=== PATIENT | female | born 1990 | race Caucasian/White ===

== ENCOUNTER 2018-12-10 15:54 | Inpatient (IN) ==
[2018-12-10 17:10] LABS: Bilirubin,Urine Negative (Negative); Blood,Urine Negative (Negative); Clarity,Urine Cloudy (Clear); Color,Urine Yellow (Yellow); Glucose,Urine (UA) Normal (Normal); Ketones,Urine Negative (Negative); Leukocyte Esterase,Urine Negative (Negative); Nitrite,Urine Negative (Negative); Protein,Urine Negative (Neg-Trace); Specific Gravity,Urine 1.013 (1.010-1.025); Urobilinogen,Urine Normal (Normal)
[2018-12-10 17:20] LABS: Bacteria,Urine None Seen per hpf (None-Few); Hyaline Casts,Urine None Seen per lpf (None-Few); RBC,Urine 0-3 per hpf (0-3); Squamous Epithelial Cell,Urine Many per lpf (None-Few); WBC,Urine 0-3 per hpf (0-3)
[2018-12-10] MEDS ORDERED: Isovue-370 500 ML BOTTLE IVP ONE (17:22)
[2018-12-10 17:23] LABS: Basophils % 0.6 %; Eosinophils # 0.4 K/mcL (0.0-0.6); Eosinophils % 6.1 %; Hematocrit 37.9 % (35.3-44.9); Hemoglobin 12.6 g/dL (11.5-15.4); Lymphocytes # 2.8 K/mcL (0.6-4.6); Lymphocytes % 44.1 %; Mean Corpuscular HGB Conc 33.2 g/dL (31.6-35.5); Mean Corpuscular Hemoglobin 27.8 pg (28.0-33.3); Mean Corpuscular Volume 83.7 fL (83.0-100.0); Mean Platelet Volume 10.7 fL (9.4-12.4); Monocytes # 0.9 K/mcL (0.0-1.3); Monocytes % 14.3 %; Neutrophils # 2.2 K/mcL (1.6-8.9); Platelet Count 338 K/mcL (140-400); Red Blood Count 4.53 M/mcL (3.82-4.97); Red Cell Distribution Width 18.6 % (11.5-14.5); Segmented Neutrophils % 34.9 %
[2018-12-10 17:28] LABS: Amphetamine Screen,Urine Negative ng/mL (Cutoff=1000); Barbiturate Screen,Urine Negative ng/mL (Cutoff=200); Benzodiazepines Screen,Urine Negative ng/mL (Cutoff=200); Cannabinoid Screen,Urine Negative ng/mL (Cutoff = 50); Cocaine Screen,Urine Negative ng/mL (Cutoff= 300); Opiate Screen,Urine Negative ng/mL (Cutoff=300); Phencyclidine Screen,Urine Negative ng/mL (Cutoff=25)
[2018-12-10 17:31] LABS: INR 1.4; Prothrombin Time 16.3 Seconds (9.4-12.1)
[2018-12-10 17:34] LABS: Activated Partial Thrombo Time 41.7 Seconds (26.0-36.0)
[2018-12-10 17:52] LABS: Acetaminophen < 10 mcg/mL (10-20); Alanine Aminotransferase > 500 Units/L (7-52); Albumin 3.7 g/dL (3.5-5.7); Alkaline Phosphatase 197 Units/L (34-104); Aspartate Amino Transferase 859 Units/L (13-39); BUN/Creatinine Ratio 7 (6-26); Bilirubin,Direct 4.7 mg/dL (0.0-0.2); Bilirubin,Indirect 2.9 mg/dL (0.0-1.2); Bilirubin,Total 7.6 mg/dL (0.3-1.0); Blood Urea Nitrogen 4 mg/dL (6-20); C-Reactive Protein < 5 mg/L (Less than 10); Calcium 9.3 mg/dL (8.6-10.3); Carbon Dioxide 27 mEq/L (23-29); Chloride 109 mEq/L (98-107); Globulin 3.6 g/dL (2.4-3.5); Glucose 91 mg/dL (70-105); Lipase 66 Units/L (11-82); Osmolality,Calculated 284 (280-300); Potassium 3.5 mEq/L (3.5-5.1); Salicylate < 2.5 mg/dL (15.0-30.0); Sodium 139 mEq/L (136-145); Total Protein 7.3 g/dL (6.4-8.9); eGFR For Non-African Americans > 60 (> 60)
[2018-12-10 18:30] LABS: Hepatitis B Surface Antigen Nonreactive (Nonreactive)
[2018-12-10 18:59] LABS: Hepatitis C Virus Antibody Nonreactive (Nonreactive)
[2018-12-10 19:00] LABS: Hepatitis B Core IgM Nonreactive (Nonreactive)
[2018-12-10 19:01] LABS: Hepatitis A Antibody IgM Nonreactive (Nonreactive)
--- NOTE | 2018-12-10 19:15 | Emergency Department Note ---
Disposition Clinical Impression: Abnormal liver function test, Jaundice, Hyperbilirubinemia, Hepatitis, Elevated INR, Hyperammonemia Disposition: Admitted As Inpatient Referrals: Carin Friedman CNP [Primary Care Provider] - Forms: ED Satisfaction Letter General Adult HPI - General Chief complaint: ED Headache Stated complaint: Jaundice,Dizziness,Nausea,chills Time Seen by Provider: 12/10/18 16:21 Source: patient Limitations: no limitations - History of Present Illness HPI Narrative: 28-year-old female reports emergency department describing increasing yellow eyes. The patient states she is status post cholecystectomy a few years ago. There is concern for jaundice. The patient reports she felt somewhat woozy weak and dizzy but did not pass out. There is no history of cough runny nose ear pain or sore throat no chest pain. The patient has no history of hepatitis, no recent acetaminophen ingestion. He patient denies any abdominal pain vomiting or diarrhea. She describes darkened urine. No flank pain. She has no history of hemochromatosis, prior liver disease, no history of hemolytic anemia, no history of liver malignancy. The patient does not drink alcohol. There is no history of prior pancreatitis. There is no history of injury. No confusion. No trouble walking talking hearing seeing or speaking no convulsions or confusion. The patient reports she was seen by her primary care physician and laboratory studies were ordered and testing was described as abnormal but specifics are not noted. No IVDU, no prior transfusions, no history of currently. Pain Scale: 7 - Related Data Home Medications Medication Instructions Recorded Confirmed Norgestimate-Ethinyl Estradiol 1 each PO DAILY 10/13/16 10/13/16 [Tri-Sprintec Tablet] RX: Lisinopril [Zestril] 20 mg PO BID 10/13/16 10/13/16 Previous Rx's Medication Instructions Recorded OxyCODONE/APAP 10/325 [Percocet 1 each PO Q6HR PRN #39 tablet 10/13/16 10/325 MG] Allergies Allergy/AdvReac Type Severity Reaction Status Date / Time No Known Allergies Allergy Verified 10/13/16 10:46 All systems ED: reviewed and negative except as stated. Past Medical History - Past Medical History Medical history: Reports: hypertension Psychiatric history: Reports: no psych history - Social History Smoking Status: Never smoker Smokeless Tobacco Status: No Alcohol use: Reports: none Drug use: Reports: none Physical Exam - General Limitations: no limitations General appearance: alert, in no apparent distress - Head Head exam: atraumatic - Eye Eye exam: Present: PERRL, EOMI, scleral icterus. Absent: conjunctival injection - ENT ENT exam: normal exam, normal oropharynx, mucous membranes moist, TM's normal bilaterally, normal external ear exam - Neck Neck exam: Present: normal inspection, full ROM, trachea midline - Chest Chest inspection: Present: symmetric chest wall rise. Absent: tenderness - Respiratory Respiratory exam: Present: normal lung sounds bilaterally. Absent: respiratory distress, prolonged expiratory phase - Cardiovascular Cardiovascular exam: Present: regular rate, normal rhythm, normal heart sounds - Abdominal Exam Abdominal exam: Present: soft, Non-Tender. Absent: tenderness, distention, guarding, rebound, rigidity, Ugalde's sign - Extremities Exam Extremities exam: Present: normal inspection, full ROM. Absent: tenderness, normal capillary refill, pedal edema, joint swelling, calf tenderness - Expanded Lower Extremity Exam Neurovascular/Tendon exam: Present: normal capillary refill. Absent: motor deficit, sensory deficit, tendon deficit, extremity cold to touch, pallor - Back Exam Back exam: Present: normal inspection, full ROM. Absent: tenderness, CVA tenderness (R), CVA tenderness (L), vertebral tenderness - Neurological Exam Neurological exam: Present: alert, oriented X3, CN II-XII intact. Absent: motor sensory deficit - Psychiatric Psychiatric exam: Present: normal affect, normal mood - Skin Skin exam: Present: warm, dry, intact, other (Jaundice noted) Course Vital Signs Temperature 98.1 F 12/10/18 15:59 Pulse Rate 80 12/10/18 15:59 Respiratory Rate 18 12/10/18 15:59 Blood Pressure 126/91 12/10/18 15:59 O2 Sat by Pulse Oximetry 96 12/10/18 15:59 Temperature 98.1 F 12/10/18 15:59 Pulse Rate 80 12/10/18 15:59 Respiratory Rate 18 12/10/18 15:59 Blood Pressure 126/91 12/10/18 15:59 O2 Sat by Pulse Oximetry 96 12/10/18 15:59 Oxygen Delivery Oxygen Delivery Room Air Medical Decision Making - MDM Narrative Medical decision making narrative: The patient is jaundiced and icteric, abnormal liver function tests noted, CT scan indicates liver disease. There is no history of trauma. The patient has no history of hemachromatosis, prior liver disease, no IV drug abuse, no history of prior hepatitis, no history of hepatocellular cancer, no ingestion of Tylenol, no alcohol utilization, she did have a remote cholecystectomy about 2 years ago. Clinical exam reveals no abdominal pain. The patient is generally healthy and has no major medical problems. She appears to have acute hepatitis. I discussed the case with the hospitalist on-call Dr. Salgado, he has excepted the patient to his care. The patient is agreeable and is currently stable pending admission to the hospital for further evaluation. - Lab Data Lab results reviewed: Yes I reviewed the patient's lab results. Result diagrams: 12/10/18 17:11 12/10/18 17:11 Lab Results 12/10/18 12/10/18 12/10/18 Range/Units 16:50 16:52 17:11 WBC 6.3 (4.3-11.1) K/mcL RBC 4.53 (3.82-4.97) M/mcL Hgb 12.6 (11.5-15.4) g/dL Hct 37.9 (35.3-44.9) % MCV 83.7 (83.0-100.0) fL MCH 27.8 L (28.0-33.3) pg MCHC 33.2 (31.6-35.5) g/dL RDW 18.6 H (11.5-14.5) % Plt Count 338 (140-400) K/mcL MPV 10.7 (9.4-12.4) fL Immature Gran % 0.0 (0-4) % Seg Neutrophils % 34.9 % Lymphocytes % 44.1 % Monocytes % 14.3 % Eosinophils % 6.1 % Basophils % 0.6 % Neutrophils # 2.2 (1.6-8.9) K/mcL Lymphocytes # 2.8 (0.6-4.6) K/mcL Monocytes # 0.9 (0.0-1.3) K/mcL Eosinophils # 0.4 (0.0-0.6) K/mcL Basophils # 0.0 (0.0-0.2) K/mcL PT (9.4-12.1) Seconds INR APTT (26.0-36.0) Seconds Sodium (136-145) mEq/L Potassium (3.5-5.1) mEq/L Chloride (98-107) mEq/L Carbon Dioxide (23-29) mEq/L BUN (6-20) mg/dL Creatinine (0.60-1.20) mg/dL Est GFR ( Amer) (> 60) Est GFR (Non-Af Amer) (> 60) BUN/Creatinine Ratio (6-26) Glucose (70-105) mg/dL Calculated Osmolality (280-300) Lactic Acid (0.5-2.2) mmol/L Calcium (8.6-10.3) mg/dL Total Bilirubin (0.3-1.0) mg/dL Direct Bilirubin (0.0-0.2) mg/dL Indirect Bilirubin (0.0-1.2) mg/dL AST (13-39) Units/L ALT (7-52) Units/L Alkaline Phosphatase (34-104) Units/L Ammonia (16-53) mcmol/L C-Reactive Protein (Less than 10) mg/L Serum Total Protein (6.4-8.9) g/dL Albumin (3.5-5.7) g/dL Globulin (2.4-3.5) g/dL Albumin/Globulin Ratio (1.1-2.2) Lipase (11-82) Units/L Serum , Qual (Negative) Urine Color Yellow (Yellow) Urine Clarity Cloudy A (Clear) Urine pH 6.0 (5.0-8.0) pH Units Ur Specific [place] 1.013 (1.010-1.025) Urine Protein Negative (Neg-Trace) mg/dL Urine Glucose (UA) Normal (Normal) mg/dL Urine Ketones Negative (Negative) mg/dL Urine Blood Negative (Negative) Urine Nitrite Negative (Negative) Urine Bilirubin Negative (Negative) Urine Urobilinogen Normal (Normal) mg/dL Ur Leukocyte Esterase Negative (Negative) Urine Microscopic RBC 0-3 (0-3) per hpf Urine Microscopic WBC 0-3 (0-3) per hpf Ur Squamous Epith Cells Many H (None-Few) per lpf Urine Bacteria None Seen (None-Few) per hpf Hyaline Casts None Seen (None-Few) per lpf Ur Culture Indicated? NO (NO) Salicylates (15.0-30.0) mg/dL Urine Opiates Screen Negative (Iibygp=337) ng/mL Acetaminophen (10-20) mcg/mL Ur Barbiturates Screen Negative (Sqtifh=998) ng/mL Ur Phencyclidine Scrn Negative (Cutoff=25) ng/mL Ur Amphetamines Screen Negative (Wrpvun=2489) ng/mL U Benzodiazepines Scrn Negative (Ienbzl=048) ng/mL Urine Cocaine Screen Negative (Cutoff= 300) ng/mL U Marijuana (THC) Screen Negative (Cutoff = 50) ng/mL Ur Drug Screen Interp See Below Hepatitis A IgM Ab (Nonreactive) Hep Bs Antigen (Nonreactive) Hep B Core IgM Ab (Nonreactive) Hepatitis C Ab Screen (Nonreactive) 12/10/18 12/10/18 12/10/18 Range/Units 17:11 17:11 17:11 WBC (4.3-11.1) K/mcL RBC (3.82-4.97) M/mcL Hgb (11.5-15.4) g/dL Hct (35.3-44.9) % MCV (83.0-100.0) fL MCH (28.0-33.3) pg MCHC (31.6-35.5) g/dL RDW (11.5-14.5) % Plt Count (140-400) K/mcL MPV (9.4-12.4) fL Immature Gran % (0-4) % Seg Neutrophils % % Lymphocytes % % Monocytes % % Eosinophils % % Basophils % % Neutrophils # (1.6-8.9) K/mcL Lymphocytes # (0.6-4.6) K/mcL Monocytes # (0.0-1.3) K/mcL Eosinophils # (0.0-0.6) K/mcL Basophils # (0.0-0.2) K/mcL PT 16.3 H (9.4-12.1) Seconds INR 1.4 APTT 41.7 H (26.0-36.0) Seconds Sodium 139 (136-145) mEq/L Potassium 3.5 (3.5-5.1) mEq/L Chloride 109 H (98-107) mEq/L Carbon Dioxide 27 (23-29) mEq/L BUN 4 L (6-20) mg/dL Creatinine 0.58 L (0.60-1.20) mg/dL Est GFR ( Amer) > 60 (> 60) Est GFR (Non-Af Amer) > 60 (> 60) BUN/Creatinine Ratio 7 (6-26) Glucose 91 (70-105) mg/dL Calculated Osmolality 284 (280-300) Lactic Acid 1.5 (0.5-2.2) mmol/L Calcium 9.3 (8.6-10.3) mg/dL Total Bilirubin 7.6 H (0.3-1.0) mg/dL Direct Bilirubin 4.7 H (0.0-0.2) mg/dL Indirect Bilirubin 2.9 H (0.0-1.2) mg/dL AST 859 H (13-39) Units/L ALT > 500 H (7-52) Units/L Alkaline Phosphatase 197 H (34-104) Units/L Ammonia (16-53) mcmol/L C-Reactive Protein < 5 (Less than 10) mg/L Serum Total Protein 7.3 (6.4-8.9) g/dL Albumin 3.7 (3.5-5.7) g/dL Globulin 3.6 H (2.4-3.5) g/dL Albumin/Globulin Ratio 1.0 L (1.1-2.2) Lipase 66 (11-82) Units/L Serum , Qual (Negative) Urine Color (Yellow) Urine Clarity (Clear) Urine pH (5.0-8.0) pH Units Ur Specific [place] (1.010-1.025) Urine Protein (Neg-Trace) mg/dL Urine Glucose (UA) (Normal) mg/dL Urine Ketones (Negative) mg/dL Urine Blood (Negative) Urine Nitrite (Negative) Urine Bilirubin (Negative) Urine Urobilinogen (Normal) mg/dL Ur Leukocyte Esterase (Negative) Urine Microscopic RBC (0-3) per hpf Urine Microscopic WBC (0-3) per hpf Ur Squamous Epith Cells (None-Few) per lpf Urine Bacteria (None-Few) per hpf Hyaline Casts (None-Few) per lpf Ur Culture Indicated? (NO) Salicylates < 2.5 L (15.0-30.0) mg/dL Urine Opiates Screen ([place]=717) ng/mL Acetaminophen < 10 L (10-20) mcg/mL Ur Barbiturates Screen (Gxqoiw=824) ng/mL Ur Phencyclidine Scrn (Cutoff=25) ng/mL Ur Amphetamines Screen (Uxkcsa=5455) ng/mL U Benzodiazepines Scrn (Bpdqxf=833) ng/mL Urine Cocaine Screen (Cutoff= 300) ng/mL U Marijuana (THC) Screen (Cutoff = 50) ng/mL Ur Drug Screen Interp Hepatitis A IgM Ab (Nonreactive) Hep Bs Antigen (Nonreactive) Hep B Core IgM Ab (Nonreactive) Hepatitis C Ab Screen (Nonreactive) 12/10/18 12/10/18 12/10/18 Range/Units 17:11 17:11 17:11 WBC (4.3-11.1) K/mcL RBC (3.82-4.97) M/mcL Hgb (11.5-15.4) g/dL Hct (35.3-44.9) % MCV (83.0-100.0) fL MCH (28.0-33.3) pg MCHC (31.6-35.5) g/dL RDW (11.5-14.5) % Plt Count (140-400) K/mcL MPV (9.4-12.4) fL Immature Gran % (0-4) % Seg Neutrophils % % Lymphocytes % % Monocytes % % Eosinophils % % Basophils % % Neutrophils # (1.6-8.9) K/mcL Lymphocytes # (0.6-4.6) K/mcL Monocytes # (0.0-1.3) K/mcL Eosinophils # (0.0-0.6) K/mcL Basophils # (0.0-0.2) K/mcL PT (9.4-12.1) Seconds INR APTT (26.0-36.0) Seconds Sodium (136-145) mEq/L Potassium (3.5-5.1) mEq/L Chloride (98-107) mEq/L Carbon Dioxide (23-29) mEq/L BUN (6-20) mg/dL Creatinine (0.60-1.20) mg/dL Est GFR ( Amer) (> 60) Est GFR (Non-Af Amer) (> 60) BUN/Creatinine Ratio (6-26) Glucose (70-105) mg/dL Calculated Osmolality (280-300) Lactic Acid (0.5-2.2) mmol/L Calcium (8.6-10.3) mg/dL Total Bilirubin (0.3-1.0) mg/dL Direct Bilirubin (0.0-0.2) mg/dL Indirect Bilirubin (0.0-1.2) mg/dL AST (13-39) Units/L ALT (7-52) Units/L Alkaline Phosphatase (34-104) Units/L Ammonia 65 H (16-53) mcmol/L C-Reactive Protein (Less than 10) mg/L Serum Total Protein (6.4-8.9) g/dL Albumin (3.5-5.7) g/dL Globulin (2.4-3.5) g/dL Albumin/Globulin Ratio (1.1-2.2) Lipase (11-82) Units/L Serum , Qual Negative (Negative) Urine Color (Yellow) Urine Clarity (Clear) Urine pH (5.0-8.0) pH Units Ur Specific [place] (1.010-1.025) Urine Protein (Neg-Trace) mg/dL Urine Glucose (UA) (Normal) mg/dL Urine Ketones (Negative) mg/dL Urine Blood (Negative) Urine Nitrite (Negative) Urine Bilirubin (Negative) Urine Urobilinogen (Normal) mg/dL Ur Leukocyte Esterase (Negative) Urine Microscopic RBC (0-3) per hpf Urine Microscopic WBC (0-3) per hpf Ur Squamous Epith Cells (None-Few) per lpf Urine Bacteria (None-Few) per hpf Hyaline Casts (None-Few) per lpf Ur Culture Indicated? (NO) Salicylates (15.0-30.0) mg/dL Urine Opiates Screen (Bzothx=840) ng/mL Acetaminophen (10-20) mcg/mL Ur Barbiturates Screen (Qdutcm=348) ng/mL Ur Phencyclidine Scrn (Cutoff=25) ng/mL Ur Amphetamines Screen (Phlnuw=9158) ng/mL U Benzodiazepines Scrn (Amrczu=669) ng/mL Urine Cocaine Screen (Cutoff= 300) ng/mL U Marijuana (THC) Screen (Cutoff = 50) ng/mL Ur Drug Screen Interp Hepatitis A IgM Ab Nonreactive (Nonreactive) Hep Bs Antigen Nonreactive (Nonreactive) Hep B Core IgM Ab Nonreactive (Nonreactive) Hepatitis C Ab Screen Nonreactive (Nonreactive) - Radiology Data Radiology results reviewed: Yes I reviewed the patient's radiology results.
[2018-12-10 21:25] LABS: Troponin I < 0.03 ng/mL (< 0.04)
--- NOTE | 2018-12-11 00:15 | Internal Med History&Physical ---
<Simon Wolf N - Last Filed: 12/11/18 00:33> Date of Encounter: 12/11/18 Time of Encounter: 00:12 Internal Medicine - H&P: HPI Chief complaint: yellow eyes, hypersomnia, tired History of present illness: Ms. Preston is a 28 year old female with a past medical history only significant for hypertension and prior cholecystectomy who presented to the emergency d [facility] for a 1 week history of discoloration of her eyes. Patient states that over the past week her eyes have become more yellow. She went to outpatient physician who ordered labs, she was told her labs were abnormal and to be evaluated in the emergency department. Along with the discoloration of her eyes, the patient also is experiencing a headache in the frontal region, increased tiredness and hypersomnia, polydypsia, urinary frequency and discolored dark urine, and generalized malaise. She denies any abdominal pain or bowel changes. In the emergency department her labs revealed a h yperbilirubinemia with total 7.6 and direct 4.7. She also had a transaminitis with an AST of 859 and ALT over 500 and ALP of 197. Her ammonia was elevated at 65. Hepatitis panel was performed which was negative for hepatitis A, B, and C. CT scan of the abdomen and pelvis were performed which was significant for diffuse periportal edema. 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 Other than her labetalol patient takes prenatals, but she denies any other [id number] medication use, denies supplement use, and denies any IV drug abuse. No history of autoimmune disease or prior liver disease, no family history of liver disease. Patient reports feeling fevered but temperature recording was below 100, and denies any abdominal pain. Denies any recent travel or new foods or any known sick contacts. test in the emergency department was negative. 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 Past Med Surg Social Fam HX - Past Medical History Medical history: hypertension Additional medical history: BILIARY COLIC Psychiatric history: no psych history - Past Surgical History Surgical History: cholecystectomy Additional surgical history: Gallbladder removed 2016 - Social History Smoking Status: Never smoker Smokeless Tobacco Status: No Alcohol use: none Drug use: none - Family History Mother Living Status: Still Living Hx Family Cardiac Disorders: Yes (Hypertension) Father Living Status: Still Living Internal Medicine - H&P: Meds Labetalol HCl 100 mg PO DAILY 12/10/18 [History] Allergy/AdvReac Type Severity Reaction Status Date / Time No Known Allergies Allergy Verified 10/13/16 10:46 All Systems PM: A 10-system review of systems was performed and is negative for pertinent findings except as documented above in the HPI. - Constitutional Constitutional: fatigue, no fever(s) - EENT Eyes: no change in vision Ears: no decreased hearing Nose, mouth and throat: dry mouth, no epistaxis - Cardiovascular Cardiovascular ROS IM: no chest pain - Respiratory Respiratory: no dyspnea, no hemoptysis - Gastrointestinal Gastrointestinal: nausea, no abdominal pain, no change in stool character, no diarrhea, no hematemesis, no hematochezia, no melena - Genitourinary Genitourinary: urinary frequency, urinary urgency, no hematuria - Musculoskeletal Musculoskeletal ROS IM: no muscle weakness - Integumentary Integumentary IM: jaundice, no rash - Neurological Neurological ROS: headache(s), no paresthesias - Psychiatric Psychiatric: no confusion - Endocrine Endocrine IM: polydipsia, polyuria - Hematologic/Lymphatic Hematologic/Lymphatic: no lymphadenopathy - Constitutional Vitals: Temp Pulse Resp BP Pulse Ox 98.8 F 62 15 139/92 96 12/10/18 22:40 12/10/18 22:40 12/10/18 22:40 12/10/18 22:40 12/10/18 22:40 Exam: Constitutional: alert and oriented, no acute distress HEENT: scleral icterus present. No infraoral jaundice. PERRL, EOMI. No facial asymmetry or dysarthria. No intraoral lesions. Normal external ears and nares Neck: no cervical lymphadenopathy, no jvd, trachea midline Chest: symmetrical chest wall rise, no tenderness to palpation Abdomen: soft, nontender, no guarding, or rigidity. Unable to palpate any hepatosplenomegaly. No RUQ tenderness. Negative Ugalde's sign Extremities: no cyanosis, clubbing, or edema Skin: light discoloration of skin Psych: appropriate mood and affect Neurological: no obvious focal neurological deficits Internal Med - H&P Results - Labs CBC & Chem 7: 12/10/18 17:11 12/10/18 17:11 Labs: Short CBC 12/10/18 Range/Units 17:11 WBC 6.3 (4.3-11.1) K/mcL Hgb 12.6 (11.5-15.4) g/dL Hct 37.9 (35.3-44.9) % Plt Count 338 (140-400) K/mcL Neutrophils # 2.2 (1.6-8.9) K/mcL BMP 12/10/18 17:11 Sodium 139 Potassium 3.5 Chloride 109 H Carbon Dioxide 27 BUN 4 L Creatinine 0.58 L Glucose 91 Calcium 9.3 Cardiac Enzymes 12/10/18 Range/Units 17:11 Troponin I < 0.03 (< 0.04) ng/mL Liver Function 12/10/18 Range/Units 17:11 Total Bilirubin 7.6 H (0.3-1.0) mg/dL Direct Bilirubin 4.7 H (0.0-0.2) mg/dL AST 859 H (13-39) Units/L ALT > 500 H (7-52) Units/L Alkaline Phosphatase 197 H (34-104) Units/L Albumin 3.7 (3.5-5.7) g/dL Urine 12/10/18 Range/Units 16:50 Urine Color Yellow (Yellow) Urine Clarity Cloudy A (Clear) Urine pH 6.0 (5.0-8.0) pH Units Ur Specific [place] 1.013 (1.010-1.025) Urine Protein Negative (Neg-Trace) mg/dL Urine Glucose (UA) Normal (Normal) mg/dL - Impressions ITS Impressions Abdomen/Pelvis CT 12/10/18 17:22 IMPRESSION: Diffuse periportal edema. Differential considerations are broad and include cardiac failure/congestion, hepatitis, trauma, cholangitis, etc. Status post cholecystectomy. Multiple small adnexal cyst bilaterally. No further follow-up necessary for this finding. D/ / Jacobo Smith MD / Jacobo Smith MD Interpreting Provider: Jacobo Smith MD Chest X-Ray 12/10/18 17:22 IMPRESSION: 1. No acute cardiopulmonary disease. D/ / Jose Skelton MD / Jose Skelton MD Interpreting Provider: Jose Skelton MD - Assessment and plan (1) Jaundice Current Visit: Yes Status: Acute Assessment and plan: One week history of Jaundice Unknown etiology at this time Labs reveal INR of 1.4, AST 859, ALT>500, Total bilirubin 7.6, Direct bilirubin 4.7, ALP 197, Ammonia 65 No abdominal pain, no tenderness on palpation of abdomen Hepatitis panel negative, denies tylenol use and urine tox negative, denies IV drug abuse, denies history of autoimmune disease or liver disease CT scan reveals diffuse periportal edema, s/p cholecytectomy, pancreas unremarkable -Unknown cause for Jaundice at this time -Repeat labs in the AM -Gastroenterology consultation -MRCP ordered -Obtaining EBV and CMP -NPO pending GI consultation -Fluid hydrate with normal saline 100cc/hr (2) Hypertension Current Visit: Yes Status: Chronic Assessment and plan: Hemodynamically stable Continue home dose labetolol Qualifiers: Qualified Code(s): I10 - Essential (primary) hypertension (3) DVT prophylaxis Current Visit: Yes Status: Acute Assessment and plan: Heparin 5000u SubQ Q12 hours - Time Spent With Patient Total time spent is greater than 50% in coordination of care (as documented) at patient's floor/unit and/or counseling patient: <Jamar Frank - Last Filed: 12/11/18 03:11> Date of Encounter: 12/11/18 Time of Encounter: 01:25 - Constitutional Constitutional: anorexia, fatigue, fever(s) (subjective), weakness, no chills, no night sweats - EENT Eyes: no blurry vision, no change in vision Ears: no ear pain, no tinnitus Nose, mouth and throat: dry mouth, no nasal congestion, no nasal discharge, no sore throat, no throat swelling - Cardiovascular Cardiovascular ROS IM: no chest pain, no dyspnea, no orthopnea, no paroxysmal nocturnal dyspnea, no syncope - Respiratory Respiratory: no cough, no hemoptysis, no chest congestion, no excessive phlegm production, no change in phlegm color - Gastrointestinal Gastrointestinal: heartburn, nausea, vomiting, no abdominal pain, no belching, no bloating, no diarrhea, no hematemesis, no hematochezia, no melena - Genitourinary Genitourinary: urinary frequency, urinary urgency, no dysuria, no flank pain, no hematuria Menstruation: period heavy Additional comments: regular but heavy menses - Musculoskeletal Musculoskeletal ROS IM: no arthralgias, no back pain - Integumentary Integumentary IM: jaundice, no erythema, no rash, no unusual bruising - Neurological Neurological ROS: headache(s), no dizziness, no focal weakness, no frequent falls, no numbness, no paresthesias - Psychiatric Psychiatric: no anxiety, no depression - Endocrine Endocrine IM: polydipsia, polyuria, no cold intolerance, no heat intolerance - Allergic/Immunologic Allergic/Immunologic: GI upset with certain foods - Constitutional Vitals: Temp Pulse Resp BP Pulse Ox 98.8 F 62 15 139/92 96 12/10/18 22:40 12/10/18 22:40 12/10/18 22:40 12/10/18 22:40 12/10/18 22:40 General appearance: Present: cooperative, A&O X 3, pleasant, no acute distress, answers questions appropriately - Head Head exam: Present: normal inspection - Eye Eye exam: Present: EOMI, PERRL, scleral icterus Pupils: Present: normal accommodation - ENT ENT exam: Present: mucous membranes dry, normal exam, normal oropharynx Additional comments: tonsils appear normal on exam - Neck Neck exam general surgery: Present: full ROM, supple. Absent: lymphadenopathy, tenderness, nuchal rigidity, thyromegaly - Respiratory Respiratory exam: Present: CTAB. Absent: chest wall tenderness, rales, respiratory distress, rhonchi, wheezes - Cardiovascular Cardiovascular exam: Present: RRR, +S1, +S2. Absent: diastolic murmur, systolic murmur - GI/Abdominal GI/Abdominal exam: Present: normal bowel sounds, soft, no peritoneal signs. Absent: guarding, hepatomegaly, mass, rebound, splenomegaly, tenderness - Extremities Exam Extremities exam: Present: full ROM, normal capillary refill, normal inspection, warm, radial pulses palpable and symmetrical. Absent: calf tenderness, mottling, pedal edema, tenderness - Back Exam Back exam: Absent: CVA tenderness (L), CVA tenderness (R) - Neurological Exam Neurological exam: Present: alert, CN II-XII intact, oriented X3, no focal deficits, strengths equal and symetr throughout - Psychiatric Psychiatric exam: Present: anxious, normal affect, normal mood. Absent: depressed, homicidal ideation, suicidal ideation - Skin Skin exam: Present: dry, intact, warm. Absent: rash Additional comments: mild to moderate jaundice noted Internal Med - H&P Results - Labs CBC & Chem 7: 12/11/18 01:16 12/11/18 01:16 Labs: Short CBC 12/10/18 12/11/18 Range/Units 17:11 01:16 WBC 6.3 6.7 (4.3-11.1) K/mcL Hgb 12.6 12.1 (11.5-15.4) g/dL Hct 37.9 35.9 (35.3-44.9) % Plt Count 338 329 (140-400) K/mcL Neutrophils # 2.2 2.2 (1.6-8.9) K/mcL BMP 12/10/18 12/11/18 17:11 01:16 Sodium 139 141 Potassium 3.5 3.4 L Chloride 109 H 107 Carbon Dioxide 27 27 BUN 4 L 4 L Creatinine 0.58 L 0.63 Glucose 91 85 Calcium 9.3 9.1 Cardiac Enzymes 12/10/18 Range/Units 17:11 Troponin I < 0.03 (< 0.04) ng/mL Liver Function 12/10/18 12/11/18 Range/Units 17:11 01:16 Total Bilirubin 7.6 H 6.8 H (0.3-1.0) mg/dL Direct Bilirubin 4.7 H 4.1 H (0.0-0.2) mg/dL AST 859 H 783 H (13-39) Units/L ALT > 500 H > 500 H (7-52) Units/L Alkaline Phosphatase 197 H 184 H (34-104) Units/L Albumin 3.7 3.4 L (3.5-5.7) g/dL Urine 12/10/18 Range/Units 16:50 Urine Color Yellow (Yellow) Urine Clarity Cloudy A (Clear) Urine pH 6.0 (5.0-8.0) pH Units Ur Specific [place] 1.013 (1.010-1.025) Urine Protein Negative (Neg-Trace) mg/dL Urine Glucose (UA) Normal (Normal) mg/dL - Impressions ITS Impressions Abdomen/Pelvis CT 12/10/18 17:22 IMPRESSION: Diffuse periportal edema. Differential considerations are broad and include cardiac failure/congestion, hepatitis, trauma, cholangitis, etc. Status post cholecystectomy. Multiple small adnexal cyst bilaterally. No further follow-up necessary for this finding. D/ / Jacobo Smith MD / Jacobo Smith MD Interpreting Provider: Jacobo Smith MD Chest X-Ray 12/10/18 17:22 IMPRESSION: 1. No acute cardiopulmonary disease. D/ / Jose Skelton MD / Jose Skelton MD Interpreting Provider: Jose Skelton MD - Diagnostic Studies Chest x-ray Status: image reviewed by me (negative) CT scan - abdomen Status: image reviewed by me (periportal edema; toehrwise negative) - Time Spent With Patient Total time spent is greater than 50% in coordination of care (as documented) at patient's floor/unit and/or counseling patient: - Attending Attestation I discussed the patient GRAYLING, past medical history, review of systems, lab data, imaging findings, and exam findings with Dr. Wolf. I then saw and examined patient independently. I met with her, her , her brother, and her [id number]. Patient is a healthy and very active individual. She runs several miles per week and actively runs marathons. She does not smoke, drink alcohol, or use any illicit drugs. She does not take anything [id number] or prescribed other than labetalol for blood pressure and vitamins. She and her are trying to conceive. She denies any acute ill contacts with similar findings. She does report some vague subjective fevers, GI upset including nausea and some vomiting, and some recent food intolerance. She has a prior cholecystectomy about 18 months ago. Since then, she has been eating well and has had no food intolerance until the last week or so. She denies any sore throat, lymph node swelling in her neck, axilla, or groin. Furthermore, her does not have any sore throat or similar symptoms to suggest mononucleosis. On exam, her throat appears to be normal without any evidence of tonsillitis. She has no lymphadenopathy in her neck, axilla, or groin. Furthermore, I do not appreciate any hepatosplenomegaly on exam. Her exam of the abdomen is completely benign at the present time. We will proceed with workup as detailed above including MRI of the common bile duct and pancreas, CMV and EBV serologies, and GI consultation. Additionally, I will order influenza and mumps serologies for the remote possibility of other viral causes of possible hepatitis. We will trend her liver profile and glucose levels. She denies any excessive Tylenol use, suicidal or homicidal ideations. She is an otherwise healthy individual. 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 Other than my comments above and noted exam findings, I agree with Dr. Wolf's assessment and plan.
[2018-12-11] MEDS: 0.9 % Sodium Chloride 1,000 ML IVC SCH ×3 (00:48→20:49)
[2018-12-11] MEDS: Ibuprofen 400 MG TABLET PO PRN ×3 (01:25→16:12)
[2018-12-11 01:27] LABS: Basophils # 0.1 K/mcL (0.0-0.2); Basophils % 0.9 %; Eosinophils # 0.5 K/mcL (0.0-0.6); Eosinophils % 7.1 %; Hematocrit 35.9 % (35.3-44.9); Hemoglobin 12.1 g/dL (11.5-15.4); Immature Granulocytes % 0.2 % (0-4); Lymphocytes % 44.3 %; Mean Corpuscular HGB Conc 33.7 g/dL (31.6-35.5); Mean Corpuscular Hemoglobin 28.1 pg (28.0-33.3); Mean Corpuscular Volume 83.5 fL (83.0-100.0); Mean Platelet Volume 11.2 fL (9.4-12.4); Monocytes # 0.9 K/mcL (0.0-1.3); Neutrophils # 2.2 K/mcL (1.6-8.9); Platelet Count 329 K/mcL (140-400); Red Cell Distribution Width 18.6 % (11.5-14.5); Segmented Neutrophils % 33.5 %
[2018-12-11 01:35] LABS: INR 1.5; Prothrombin Time 16.8 Seconds (9.4-12.1)
[2018-12-11 01:38] LABS: Activated Partial Thrombo Time 41.9 Seconds (26.0-36.0)
[2018-12-11 01:52] LABS: Alanine Aminotransferase > 500 Units/L (7-52); Albumin 3.4 g/dL (3.5-5.7); Alkaline Phosphatase 184 Units/L (34-104); Aspartate Amino Transferase 783 Units/L (13-39); BUN/Creatinine Ratio 6 (6-26); Bilirubin,Direct 4.1 mg/dL (0.0-0.2); Bilirubin,Indirect 2.7 mg/dL (0.0-1.2); Bilirubin,Total 6.8 mg/dL (0.3-1.0); Blood Urea Nitrogen 4 mg/dL (6-20); Calcium 9.1 mg/dL (8.6-10.3); Carbon Dioxide 27 mEq/L (23-29); Chloride 107 mEq/L (98-107); Globulin 3.4 g/dL (2.4-3.5); Glucose 85 mg/dL (70-105); Osmolality,Calculated 288 (280-300); Potassium 3.4 mEq/L (3.5-5.1); Sodium 141 mEq/L (136-145); Total Protein 6.8 g/dL (6.4-8.9); eGFR For Non-African Americans > 60 (> 60)
[2018-12-11] MEDS ORDERED: *HR* LORazepam 2 MG/ML VIAL IVP ONE (03:29)
[2018-12-11 05:09] LABS: Influenza A PCR Negative (Negative); Influenza B PCR Negative (Negative); Resp. Syncytial Virus PCR Negative (Negative)
[2018-12-11] MEDS ORDERED: *HR* Heparin 5,000 UNIT/ML VIAL SQ SCH (06:00)
[2018-12-11 07:10] LABS: Mumps Virus IgG Antibody POSITIVE
[2018-12-11 07:11] LABS: EBV Virus Capsid Ag IgM Ab Negative (Negative)
[2018-12-11] MEDS ORDERED: Lactulose Oral Soln 20 GM/30 ML UDC PO SCH (09:00)
[2018-12-11] MEDS: hydrOXYzine pamoate 25 MG CAPSULE PO PRN ×2 (10:01→16:12)
--- NOTE | 2018-12-11 10:14 | Gastroenterology Consult Note ---
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 and vit with no other otc, supplement, alcohol or recreational drug hx -T bili 7.6, direct 4.7, AST 859, ALT >500, ALP 197, wbc 6.3 and afebrile on arrival -S/p cholecystectomy ~2 years ago -LFT's in a mixed type pattern without evidence of obstruction or biliary dilation on imaging -LFT's somewhat trending down today but still elevated -BP readings at home she indicated has been running high but recording readings here wnl and do not suspect ischemic origin -CT abd and MRCP largely unremarkable except evidence of nonspecific periportal edema -Neg viral hepatitis screening, neg viral pcr for flu, mumps, RSV and EBV -Tox screen neg -CMV pending -Likely post infectious etiology but will check additional labs including autoimmune, ck, ferritin, elier, anca, and thyroid cascade but suspect they will return normal -Will continue to monitor and provide supportive care at this time with no further imaging or invasive tests planned currently Qualifiers: Hepatic coma status: without hepatic coma Qualified Code(s): K72.00 - Acute and subacute hepatic failure without coma (2) Elevated LFTs Current Visit: Yes Status: Acute Assessment and plan: -As above (3) Jaundice Current Visit: Yes Status: Acute Assessment and plan: -As above (4) Elevated INR Current Visit: Yes Status: Acute Assessment and plan: -As above - Time Spent With Patient Total time spent is greater than 50% in coordination of care (as documented) at patient's floor/unit and/or counseling patient: GI History of Present Illness - Data of Consult Patient: new to practice Consult date: 12/11/18 Requesting Physician: Refugio Rosenthal - Consult Narrative Reason for consult: Jaundice History of present illness: Ms. Preston is a 28 year old female with pmh significant for HTN treated with labetalol who is otherwise healthy. She has had fatigue, frontal headache, occasional dizziness with standing, congestion, rhinnorrhea, subjective fever/chills that started 3-4 weeks ago and over the past 7-10 days developed mild scleral icterus, nausea, anorexia, vague generalized weakness, polydipsia and polyuria. She states she has been drinking ~1 gal water a day the last couple weeks and feels she cannot get enough water and still feels thirsty. She denies abdominal pain, changes postprandial, constipation, diarrhea, pruritus, rash, pharyngitis, lymphadenopathy, cough, alcohol use, IVDU, any new medications, use of otc medications or supplements other then vit, hx of autoimmune disease or fam hx of autoimmune diseases. She is up to date on her vaccines besides influenza. She had a cholecystectomy about 2 years ago. 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 Past Med Surg Social Fam HX - Past Medical History Medical history: hypertension Additional medical history: BILIARY COLIC Psychiatric history: no psych history - Past Surgical History Surgical History: cholecystectomy Additional surgical history: Gallbladder removed 2016 - Social History Smoking Status: Never smoker Smokeless Tobacco Status: No Alcohol use: none Drug use: none - Family History Mother Living Status: Still Living Hx Family Cardiac Disorders: Yes (Hypertension) Father Living Status: Still Living - Constitutional Vitals: Temp Pulse Resp BP Pulse Ox 97.8 F 62 15 145/93 98 12/11/18 03:11 12/11/18 03:11 12/11/18 03:11 12/11/18 03:11 12/11/18 03:11 General appearance: Present: cooperative, A&O X 3, pleasant, no acute distress, answers questions appropriately - Head Head exam: Present: atraumatic, normal inspection, normocephalic - Eye Eye exam: Present: scleral icterus. Absent: normal appearance - ENT ENT exam: Present: mucous membranes moist - Neck Neck exam general surgery: Present: supple, trachea midline - Respiratory Respiratory exam: Present: CTAB. Absent: accessory muscle use, chest wall tenderness, decreased breath sounds, prolonged expiratory phase, rales, respiratory distress, rhonchi, stridor, wheezes, tachypnea - Cardiovascular Cardiovascular exam: Present: RRR, +S1, +S2. Absent: bradycardia, clicks, diastolic murmur, distant heart sounds, gallop, irregular rhythm, JVD, rubs, +S3, +S4, systolic murmur, tachycardia - GI/Abdominal GI/Abdominal exam: Present: soft, no peritoneal signs. Absent: distended, firm, guarding, hepatomegaly, rebound, rigid, splenomegaly, tenderness - Extremities Exam Extremities exam: Present: normal capillary refill, normal inspection, warm, radial pulses palpable and symmetrical. Absent: calf tenderness, cyanotic, pedal edema, tenderness - Neurological Exam Neurological exam: Present: alert, CN II-XII intact, oriented X3, no focal deficits. Absent: facial droop, speech deficit - Psychiatric Psychiatric exam: Present: normal affect, normal mood - Skin Skin exam: Present: dry, intact, warm. Absent: abrasion, cyanosis, diaphoretic, erythema, excoriation, mottled, normal color, pallor, petechiae, rash, urticaria, vesicles Results - Labs CBC & Chem 7: 12/11/18 01:16 12/11/18 01:16 Labs: Last Result Calcium 9.1 mg/dL (8.6-10.3) 12/11/18 01:16 Troponin I < 0.03 ng/mL (< 0.04) 12/10/18 17:11 C-Reactive Protein < 5 mg/L (Less than 10) 12/10/18 17:11 Salicylates < 2.5 mg/dL (15.0-30.0) L 12/10/18 17:11 Urine Opiates Screen Negative ng/mL (Eaovbw=883) 12/10/18 16:52 Entire Visit Hgb 12.1 g/dL (11.5-15.4) 12/11/18 01:16 Hct 35.9 % (35.3-44.9) 12/11/18 01:16 PT 16.8 Seconds (9.4-12.1) H 12/11/18 01:16 Total Bilirubin 6.8 mg/dL (0.3-1.0) H 12/11/18 01:16 AST 783 Units/L (13-39) H 12/11/18 01:16 ALT > 500 Units/L (7-52) H 12/11/18 01:16 Ammonia 79 mcmol/L (16-53) H 12/11/18 01:16 Lipase 66 Units/L (11-82) 12/10/18 17:11 Acetaminophen < 10 mcg/mL (10-20) L 12/10/18 17:11 - ABG ABG results: PT/INR, D-dimer PT 16.8 Seconds (9.4-12.1) H 12/11/18 01:16 - Impressions Impressions Abdomen/Pelvis CT 12/10/18 17:22 IMPRESSION: Diffuse periportal edema. Differential considerations are broad and include cardiac failure/congestion, hepatitis, trauma, cholangitis, etc. Status post cholecystectomy. Multiple small adnexal cyst bilaterally. No further follow-up necessary for this finding. D/ / Jacobo Smith MD / Jacobo Smith MD Interpreting Provider: Jacobo Smith MD Chest X-Ray 12/10/18 17:22 IMPRESSION: 1. No acute cardiopulmonary disease. D/ / Jose Skelton MD / Jose Skelton MD Interpreting Provider: Jose Skelton MD Abdomen MRI 12/11/18 00:09 IMPRESSION: Redemonstration of diffuse periportal edema which again is nonspecific and may relate to hydration status or cholangitis. Otherwise negative noncontrast abdominal MRI/MRCP as detailed above. D/ / Sohan Juarez MD / Sohan Juarez MD Interpreting Provider: Sohan Juarez MD Consult Discharge Plan - Plan Referrals: Carin Friedman CNP [Primary Care Provider] - <Isma Joseph - Last Filed: 12/11/18 13:41> Date of Encounter: 12/11/18 Time of Encounter: 11:00 - Time Spent With Patient Total time spent is greater than 50% in coordination of care (as documented) at patient's floor/unit and/or counseling patient: GI History of Present Illness - Data of Consult Requesting Physician: Refugio Rosenthal - Consult Narrative History of present illness: Ms. Preston is a 28 year old female - Constitutional Vitals: Temp Pulse Resp BP Pulse Ox 97.7 F 71 16 129/82 99 12/11/18 10:50 12/11/18 10:50 12/11/18 10:50 12/11/18 10:50 12/11/18 10:50 Results - Labs CBC & Chem 7: 12/11/18 01:16 12/11/18 01:16 Labs: Last Result Calcium 9.1 mg/dL (8.6-10.3) 12/11/18 01:16 Ferritin 170 ng/mL (10-120) H 12/11/18 10:22 Troponin I < 0.03 ng/mL (< 0.04) 12/10/18 17:11 C-Reactive Protein < 5 mg/L (Less than 10) 12/10/18 17:11 Salicylates < 2.5 mg/dL (15.0-30.0) L 12/10/18 17:11 Urine Opiates Screen Negative ng/mL (Jmlout=438) 12/10/18 16:52 Entire Visit Hgb 12.1 g/dL (11.5-15.4) 12/11/18 01:16 Hct 35.9 % (35.3-44.9) 12/11/18 01:16 PT 16.8 Seconds (9.4-12.1) H 12/11/18 01:16 Ferritin 170 ng/mL (10-120) H 12/11/18 10:22 Total Bilirubin 6.8 mg/dL (0.3-1.0) H 12/11/18 01:16 AST 783 Units/L (13-39) H 12/11/18 01:16 ALT > 500 Units/L (7-52) H 12/11/18 01:16 Ammonia 79 mcmol/L (16-53) H 12/11/18 01:16 Lipase 66 Units/L (11-82) 12/10/18 17:11 Acetaminophen < 10 mcg/mL (10-20) L 12/10/18 17:11 - ABG ABG results: PT/INR, D-dimer PT 16.8 Seconds (9.4-12.1) H 12/11/18 01:16 - Impressions Impressions Abdomen/Pelvis CT 12/10/18 17:22 IMPRESSION: Diffuse periportal edema. Differential considerations are broad and include cardiac failure/congestion, hepatitis, trauma, cholangitis, etc. Status post cholecystectomy. Multiple small adnexal cyst bilaterally. No further follow-up necessary for this finding. D/ / Jacobo Smith MD / Jacobo Smith MD Interpreting Provider: Jacobo Smith MD Chest X-Ray 12/10/18 17:22 IMPRESSION: 1. No acute cardiopulmonary disease. D/ / Jose Skelton MD / Jose Skelton MD Interpreting Provider: Jose Skelton MD Abdomen MRI 12/11/18 00:09 IMPRESSION: Redemonstration of diffuse periportal edema which again is nonspecific and may relate to hydration status or cholangitis. Otherwise negative noncontrast abdominal MRI/MRCP as detailed above. D/ / Sohan Juarez MD / Sohan Juarez MD Interpreting Provider: Sohan Juarez MD - Attending Attestation I have personally performed a face to face evaluation on this patient. I have reviewed and agree with the care plan. History and Exam by me shows: Patient seen. Currently denies any abdominal pain. Examination: Jaundice abdomen is soft. Assessment: Patient with acute hepatitis most probably drug- induced as she did took Amoxil for 10 days for a sinus infection recently. 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 Currently patient is not encephalopathic her LFTs are improving. Denies any use of Tylenol. Recommendation: Follow LFTs as LFTs are improving there is no need for any intervention such as Mucomyst. Daily PT INR and LFTs.
[2018-12-11 11:15] LABS: Thyroid Stimulating Hormone 0.569 mcIU/mL (0.340-5.600)
--- NOTE | 2018-12-11 12:59 | Event Note ---
Date of Encounter: 12/11/18 Time of Encounter: 12:55 S Pt and family concerned about her health, unclear of what is causing her symptoms of fatigue and jaundice. Did respond well to dose of ativan last night. O vitals unremarkable jaundiced on exam awake, fully oriented no HSM or RUQ pain no asterixis MRCP redemonstrating periportal edema which is nonspecific, but does not show mass or stone or ductal dilation A/P Acute liver injury: w transaminitis, indirect hyperbilirubinemia, coagulopathy, and hyperammonemia but no asterixis or confusion to suggest encephalopathy, appreciate GI consultation and recommendations to hydrate, monitor, and check addl labs Hypokalemia: replace and monitor HTN: home labetalol PPx: ambulation FEN: regular, MIVF NS@100 until PO improves Lines: PIV Consults: GI Code: Full Dispo: patient requires inpatient eval and management at this time. Anticipate 2-3 days. Will be homegoing
[2018-12-11] MEDS: Lactulose Oral Soln 20 GM/30 ML UDC PO SCH (20:49)
[2018-12-12] MEDS: Ibuprofen 600 MG TABLET PO PRN ×2 (01:43→17:40)
[2018-12-12 01:49] LABS: Hematocrit 32.9 % (35.3-44.9); Immature Platelets 4.4 % (1.1-6.1); Mean Corpuscular HGB Conc 33.4 g/dL (31.6-35.5); Mean Corpuscular Volume 83.7 fL (83.0-100.0); Mean Platelet Volume 11.1 fL (9.4-12.4); Red Blood Count 3.93 M/mcL (3.82-4.97); Red Cell Distribution Width 18.6 % (11.5-14.5)
[2018-12-12 01:53] LABS: INR 1.5; Prothrombin Time 16.4 Seconds (9.4-12.1)
[2018-12-12 02:05] LABS: Alanine Aminotransferase > 500 Units/L (7-52); Albumin 2.9 g/dL (3.5-5.7); Alkaline Phosphatase 149 Units/L (34-104); Aspartate Amino Transferase 600 Units/L (13-39); BUN/Creatinine Ratio 8 (6-26); Bilirubin,Direct 3.6 mg/dL (0.0-0.2); Bilirubin,Indirect 2.1 mg/dL (0.0-1.2); Bilirubin,Total 5.7 mg/dL (0.3-1.0); Blood Urea Nitrogen 4 mg/dL (6-20); Calcium 8.5 mg/dL (8.6-10.3); Carbon Dioxide 25 mEq/L (23-29); Chloride 109 mEq/L (98-107); Globulin 2.9 g/dL (2.4-3.5); Glucose 69 mg/dL (70-105); Magnesium 1.7 mg/dL (1.6-2.6); Osmolality,Calculated 287 (280-300); Potassium 3.7 mEq/L (3.5-5.1); Sodium 141 mEq/L (136-145); Total Protein 5.8 g/dL (6.4-8.9); eGFR For Non-African Americans > 60 (> 60)
[2018-12-12] MEDS: Lactulose Oral Soln 20 GM/30 ML UDC PO SCH (09:19)
--- NOTE | 2018-12-12 10:10 | Gastroenterology Progress Note ---
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 with no other otc, supplement, alcohol or recreational drug hx -T bili 7.6, direct 4.7, AST 859, ALT >500, ALP 197, wbc 6.3 and afebrile on arrival -S/p cholecystectomy ~2 years ago -LFT's in a mixed type pattern without evidence of obstruction or biliary dilation on imaging -BP readings at home she indicated has been running high but recording readings here wnl and do not suspect ischemic origin -CT abd and MRCP largely unremarkable except evidence of nonspecific periportal edema -Neg viral hepatitis screening, neg viral pcr for flu, mumps, RSV and EBV -Tox screen neg -CMV pending -Autoimmune labs pending -LFT's continue to trend downward and will likely take 1-2 weeks to return to baseline -As liver function improving acetylcysteine will not be needed at this time -Will continue to monitor LFTs/INR and provide supportive care at this time with no further imaging or invasive tests planned currently Qualifiers: Hepatic coma status: without hepatic coma Qualified Code(s): K72.00 - Acute and subacute hepatic failure without coma (2) Elevated LFTs Current Visit: Yes Status: Acute Assessment and plan: -As above (3) Jaundice Current Visit: Yes Status: Acute Assessment and plan: -As above (4) Elevated INR Current Visit: Yes Status: Acute Assessment and plan: -As above - Time Spent With Patient Total time spent is greater than 50% in coordination of care (as documented) at patient's floor/unit and/or counseling patient: - Subjective Interval history: No acute events overnight. Says she is feeling somewhat better but still fatigued and continues to have TELLO. Denies pruritus, abdominal pain, N/V, constipation, diarrhea, confusion. - Constitutional Vitals: Temp Pulse Resp BP Pulse Ox 97.6 F 58 15 115/74 98 12/12/18 07:33 12/12/18 07:33 12/12/18 07:33 12/12/18 07:33 12/12/18 07:33 General appearance: Present: cooperative, A&O X 3, pleasant, no acute distress, answers questions appropriately - Head Head exam: Present: atraumatic, normal inspection, normocephalic - Eye Eye exam: Present: scleral icterus. Absent: normal appearance - ENT ENT exam: Present: mucous membranes dry - GI/Abdominal GI/Abdominal exam: Present: soft, no peritoneal signs. Absent: distended, firm, guarding, hepatomegaly, rebound, rigid, splenomegaly, tenderness - Extremities Exam Extremities exam: Present: normal capillary refill, normal inspection, warm. Absent: pedal edema - Neurological Exam Neurological exam: Present: alert, CN II-XII intact, no focal deficits. Absent: facial droop, speech deficit - Psychiatric Psychiatric exam: Present: normal affect, normal mood - Skin Skin exam: Present: dry, intact, warm. Absent: abrasion, cyanosis, diaphoretic, erythema, excoriation, mottled, normal color (jaundice), pallor, petechiae, rash, urticaria, vesicles Results - Labs CBC & Chem 7: 12/12/18 01:32 12/12/18 01:32 Labs: Last Result Calcium 8.5 mg/dL (8.6-10.3) L 12/12/18 01:32 Ferritin 170 ng/mL (10-120) H 12/11/18 10:22 Troponin I < 0.03 ng/mL (< 0.04) 12/10/18 17:11 C-Reactive Protein < 5 mg/L (Less than 10) 12/10/18 17:11 Salicylates < 2.5 mg/dL (15.0-30.0) L 12/10/18 17:11 Urine Opiates Screen Negative ng/mL (Klvxin=495) 12/10/18 16:52 Entire Visit Hgb 11.0 g/dL (11.5-15.4) L 12/12/18 01:32 Hct 32.9 % (35.3-44.9) L 12/12/18 01:32 PT 16.4 Seconds (9.4-12.1) H 12/12/18 01:32 Ferritin 170 ng/mL (10-120) H 12/11/18 10:22 Total Bilirubin 5.7 mg/dL (0.3-1.0) H 12/12/18 01:32 AST 600 Units/L (13-39) H 12/12/18 01:32 ALT > 500 Units/L (7-52) H 12/12/18 01:32 Ammonia 67 mcmol/L (16-53) H 12/12/18 01:32 Lipase 66 Units/L (11-82) 12/10/18 17:11 Acetaminophen < 10 mcg/mL (10-20) L 12/10/18 17:11 - ABG ABG results: PT/INR, D-dimer PT 16.4 Seconds (9.4-12.1) H 12/12/18 01:32 Consult Discharge Plan - Plan Referrals: Carin Friedman ED[facility] SPECIALIST [Primary Care Provider] - 12/17/18 3:30 pm <Isma Joseph - Last Filed: 12/12/18 16:22> Date of Encounter: 12/12/18 Time of Encounter: 10:00 - Time Spent With Patient Total time spent is greater than 50% in coordination of care (as documented) at patient's floor/unit and/or counseling patient: - Constitutional Vitals: Temp Pulse Resp BP Pulse Ox 98.3 F 70 16 113/72 98 12/12/18 14:36 12/12/18 14:36 12/12/18 14:36 12/12/18 14:36 12/12/18 14:36 Results - Labs CBC & Chem 7: 12/12/18 15:55 12/12/18 01:32 Labs: Last Result Calcium 8.5 mg/dL (8.6-10.3) L 12/12/18 01:32 Ferritin 170 ng/mL (10-120) H 12/11/18 10:22 Troponin I < 0.03 ng/mL (< 0.04) 12/10/18 17:11 C-Reactive Protein < 5 mg/L (Less than 10) 12/10/18 17:11 Salicylates < 2.5 mg/dL (15.0-30.0) L 12/10/18 17:11 Urine Opiates Screen Negative ng/mL (Euqoyf=190) 12/10/18 16:52 Entire Visit Hgb 11.9 g/dL (11.5-15.4) 12/12/18 15:55 Hct 36.2 % (35.3-44.9) 12/12/18 15:55 PT 16.4 Seconds (9.4-12.1) H 12/12/18 01:32 Ferritin 170 ng/mL (10-120) H 12/11/18 10:22 Total Bilirubin 5.7 mg/dL (0.3-1.0) H 12/12/18 01:32 AST 600 Units/L (13-39) H 12/12/18 01:32 ALT > 500 Units/L (7-52) H 12/12/18 01:32 Ammonia 67 mcmol/L (16-53) H 12/12/18 01:32 Lipase 66 Units/L (11-82) 12/10/18 17:11 Acetaminophen < 10 mcg/mL (10-20) L 12/10/18 17:11 - ABG ABG results: PT/INR, D-dimer PT 16.4 Seconds (9.4-12.1) H 12/12/18 01:32 - Attending Attestation I have personally performed a face to face evaluation on this patient. I have reviewed and agree with the care plan. History and Exam by me shows: Patient seen. Denies abdominal pain on examination: More alert today abdomen is soft. Assessment: Acute hepatitis due to amoxicillin.. LFTs are improving. Recommendation: supportive care
[2018-12-12] MEDS: 0.9 % Sodium Chloride 1,000 ML IVC SCH (10:33)
--- NOTE | 2018-12-12 11:08 | Internal Med Progress Note ---
Hospitalist Progress Note - Encounter Date of Encounter: 12/12/18 Time of Encounter: 11:06 - Subjective Interval History: Pt fatigue improving, appetite diminished but drinking lots of water, headache improved after sleeping well overnight, anxiety improved - Exam Vitals: Temp Pulse Resp BP Pulse Ox 98.2 F 68 16 114/76 96 12/12/18 10:14 12/12/18 10:14 12/12/18 10:14 12/12/18 10:14 12/12/18 10:14 Exam: Constitutional: no acute distress, yellow HEENT: scleral icterus present, mucosal yellowing Chest: symmetrical chest wall rise, normal work of breathing Abdomen: soft, nontender Psych: appropriate mood and affect, awake and fully oriented Neurological: no obvious focal neurological deficits - Summary of Assessment and Plan Summary of Assessment and Plan: Quynh Preston is a 28 F w hx HTN who p/w jaundice and elevated ALT/ALT, IBili, INR, following course of amoxicillin for infection, concerning for viral he patitis or DILI. Acute liver injury: w transaminitis, indirect hyperbilirubinemia, coagulopathy, and hyperammonemia without asterixis or confusion, symptoms and labs both improving today - GI consultation, appreciate rec's - d/c lactulose - all labs improving, will likely d/c tomorrow if continues trend, with outpatient GI f/u 1-2 weeks for repeat labs and to follow up pending autoimmune labs HTN: home labetalol PPx: ambulation FEN: regular, MIVF NS@100 Lines: PIV Consults: GI Code: Full Dispo: patient requires inpatient eval and management at this time. Anticipate d/c tomorrow, will be homegoing - Time Spent with Patient Total time spent is greater than 50% in coordination of care (as documented) at patient's floor/unit and/or counseling patient: Internal Medicine: Result - Labs CBC & Chem 7: 12/12/18 01:32 12/12/18 01:32 Labs: Short CBC 12/12/18 Range/Units 01:32 WBC 5.2 (4.3-11.1) K/mcL Hgb 11.0 L (11.5-15.4) g/dL Hct 32.9 L (35.3-44.9) % Plt Count 253 (140-400) K/mcL BMP 12/12/18 01:32 Sodium 141 Potassium 3.7 Chloride 109 H Carbon Dioxide 25 BUN 4 L Creatinine 0.53 L Glucose 69 L Calcium 8.5 L Liver Function 12/12/18 Range/Units 01:32 Total Bilirubin 5.7 H (0.3-1.0) mg/dL Direct Bilirubin 3.6 H (0.0-0.2) mg/dL AST 600 H (13-39) Units/L ALT > 500 H (7-52) Units/L Alkaline Phosphatase 149 H (34-104) Units/L Albumin 2.9 L (3.5-5.7) g/dL - ABG Interpretation ABG results: PT/INR, D-dimer PT 16.4 Seconds (9.4-12.1) H 12/12/18 01:32 Consult Discharge Plan - Plan Referrals: Carin Friedman CNP [Primary Care Provider] -
[2018-12-12 16:14] LABS: Hematocrit 36.2 % (35.3-44.9); Hemoglobin 11.9 g/dL (11.5-15.4); Mean Corpuscular HGB Conc 32.9 g/dL (31.6-35.5); Mean Corpuscular Hemoglobin 27.5 pg (28.0-33.3); Mean Corpuscular Volume 83.6 fL (83.0-100.0); Mean Platelet Volume 11.3 fL (9.4-12.4); Platelet Count 319 K/mcL (140-400); Red Blood Count 4.33 M/mcL (3.82-4.97)
--- NOTE | 2018-12-12 16:26 | Event Note ---
Date of Encounter: 12/12/18 Time of Encounter: 16:23 Pt and family requesting transfer to [facility] for further evaluation. After lengthy discussion answering their questions, they requested that I call [facility] and get Hepatology's opinion. Call was made to [facility], who connected me with Hepatology Dr Diamond, who after brief review of this patient's case, did not see any direct benefit of transfer and provided some general suggestions in regard to caring for patients with acute liver injury, such as diagnostic serologies and expectant monitoring of enzymes. Will proceed as planned with monitoring for continued improvement in liver enzymes and likely discharge to outpatient GI follow up.
[2018-12-13 04:54] LABS: INR 1.3; Prothrombin Time 14.3 Seconds (9.4-12.1)
[2018-12-13 05:13] LABS: Alanine Aminotransferase 585 Units/L (7-52); Albumin 3.2 g/dL (3.5-5.7); Alkaline Phosphatase 157 Units/L (34-104); Aspartate Amino Transferase 530 Units/L (13-39); BUN/Creatinine Ratio 14 (6-26); Bilirubin,Direct 3.6 mg/dL (0.0-0.2); Bilirubin,Indirect 2.2 mg/dL (0.0-1.2); Bilirubin,Total 5.8 mg/dL (0.3-1.0); Blood Urea Nitrogen 8 mg/dL (6-20); Calcium 8.9 mg/dL (8.6-10.3); Carbon Dioxide 26 mEq/L (23-29); Chloride 106 mEq/L (98-107); Globulin 3.2 g/dL (2.4-3.5); Glucose 82 mg/dL (70-105); Osmolality,Calculated 283 (280-300); Potassium 3.8 mEq/L (3.5-5.1); Sodium 138 mEq/L (136-145); Total Protein 6.4 g/dL (6.4-8.9); eGFR For Non-African Americans > 60 (> 60)
[2018-12-13 05:48] VITALS: BP 133/84
[2018-12-13] MEDS: Ibuprofen 600 MG TABLET PO PRN (05:48)
--- NOTE | 2018-12-13 10:28 | Discharge Summary ---
- NOTES TO OUTPATIENT PROVIDER Notes to Outpatient Provider: Acute Liver Injury, suspected 2/2 amoxicillin (DILI) or post-viral. Needs follow up of Autoimmune tests, as well as trending of LFTs (ALT 580, AST 500, TBili 5.8, DBili 3.6, INR 1.3 at discharge) Orders not resulted at time of discharge: Pending orders 12/11/18 01:14 Mumps Virus IgM Antibody Stat 12/11/18 01:16 CMV Qualitative PCR (pos neg) Stat 12/11/18 10:22 MARCO IgG IRAJ rflx IFA Routine Aldolase, Serum Routine Ceruloplasmin Routine MPO/PR3 (ANCA) Antibodies Routine Mitochondrial M2 Antibody, IgG Routine Smooth Muscle Antibody, IgG Routine 12/12/18 15:55 Immunoglobulins IgG IgA IgM Routine Date of Encounter: 12/13/18 Time of Encounter: 10:26 - Discharge Diagnosis (1) Drug-induced liver injury Priority: Primary Status: Acute Hospital course: Dear Doctors, I recently had the opportunity to care for this patient during their recent hospital stay at [facility]. Quynh Preston is a 28 F w hx HTN who presented at time of admission with subacute fatigue, anorexia, and jaundice, and found in ED to have elevated ALT/ALT, IBili, and INR, following course of amoxicillin for infection 1 month prior, concerning for acute liver injury from viral hepatitis or DILI. In the hospital, patient's LFTs all trended toward improvement. GI was consult ed, who sent serologies for autoimmune involvement. Her energy and appetite slowly improved, and pt able to maintain adequate PO without IV fluids by day of discharge. With continued slow improvement in symptoms and labs, patient was discharged to outpatient GI follow up. Follow up: GI Dr Joseph 1 week Tests pending: MARCO, SMA, AMA, ANCA, IgG IgA IgM, ceruloplasmin, aldolase, mumps IgM, CMV PCR Med changes: amoxicillin added to allergy list Dx: DILI Pertinent tests/consults: GI consult, RUQ US and MRCP both showing non-specific periportal edema Mental status: awake, fully oriented Code status: Bowling Ball Finisher spent on discharge: 35 minutes It has been my pleasure participating in this patient's care. Please contact me with any questions or concerns regarding their hospital stay. Sincerely, Refugio Rosenthal MD - Time Spent with Patient Total time spent providing and/or coordinating discharge services: - Discharge Medications Prescriptions: Continue Labetalol HCl 100 mg PO DAILY Home Medications: Labetalol HCl 100 mg PO DAILY 12/10/18 [History] Allergies/Adverse Reactions: Allergy/AdvReac Type Severity Reaction Status Date / Time No Known Allergies Allergy Verified 12/13/18 09:05 Date of admission: 12/11/18 03:22 Primary care physician: RK Anne Consults: 12/10/18 23:32 Consult to Nutrition [CONS] Routine Comment: Consulting Provider: NUTRITION Reason for Dietary Consult: MST Score 12/11/18 00:07 Consult to Gastroenterology [CONS] Routine Consulting Provider: Gastroenterology Mary Reason for Consult: painless jaundice, transamanitis, conjugated hyperbilirubinemia, periportal edema on CT Call Completed: No - Constitutional Vitals: Temp Pulse Resp BP Pulse Ox 98.1 F 62 14 133/84 99 12/13/18 05:46 12/13/18 05:46 12/13/18 05:46 12/13/18 05:46 12/13/18 05:46 General appearance: Present: cooperative, A&O X 3, pleasant, no acute distress, answers questions appropriately Exam: Constitutional: no acute distress, mild jaundice HEENT: mild scleral icterus present, mucosal yellowing of hard palate Chest: symmetrical chest wall rise, normal work of breathing Abdomen: soft, nontender Psych: appropriate mood and affect, awake and fully oriented Neurological: no obvious focal neurological deficits - Patient Status Disposition: Home, Self-Care Condition: Fair Functional capacity at discharge: independent ambulation Overall status at discharge: patient is progressing back to baseline - Discharge Instructions Instructions: Jaundice (DC) Follow Up With: Carin Friedman CNP [Primary Care Provider] - 12/17/18 3:30 pm (Follow up as scheduled.) Isma Joseph MD [Partnered Physician] - (HFU: drug induced liver injury, needs appointment next week or very early the following week, web-requested, the office will call the patient to schedule a follow up appointment. ) Additional Instructions: Advance diet and activity as tolerated. - Diet and Activity Activity: resume usual activities as tolerated Diet: advance to your usual diet
[2018-12-13 10:58] LABS: Aldolase, Serum 15.7 U/L (1.5-8.1)
[2018-12-14 12:04] LABS: Smooth Muscle Ab Titer IgG <1:20 (<1:20)
[2018-12-14 17:37] LABS: Cytomegalovirus DNA (PCR) NOT DETECTED
--- NOTE | 2018-12-14 20:03 | Electrocardiograph Report ---
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
== END 2018-12-13 11:10 | disposition home or self-care (01) | DRG 442 ==
LOC: 3ANU 15:54 → EMEROOARM 15:54 → 3ANU 22:35 → SUATTDRO 12-11 03:22
PROVIDERS: ADMIT Pediatrics; ATTEND Internal Medicine

== ENCOUNTER 2019-10-07 04:21 | Observation (INO) ==
[2019-10-07 05:43] LABS: Basophils % 0.2 %; Eosinophils # 0.2 K/mcL (0.0-0.6); Eosinophils % 1.9 %; Hemoglobin 10.1 g/dL (11.5-15.4); Immature Granulocytes % 0.5 % (0-4); Lymphocytes # 2.1 K/mcL (0.6-4.6); Lymphocytes % 17.2 %; Mean Corpuscular HGB Conc 33.7 g/dL (31.6-35.5); Mean Corpuscular Hemoglobin 28.2 pg (28.0-33.3); Mean Corpuscular Volume 83.8 fL (83.0-100.0); Mean Platelet Volume 11.8 fL (9.4-12.4); Monocytes # 1.2 K/mcL (0.0-1.3); Monocytes % 10.2 %; Neutrophils # 8.4 K/mcL (1.6-8.9); Nucleated Red Blood Cells 0.3 /100 WBC (0); Platelet Count 330 K/mcL (140-400); Red Blood Count 3.58 M/mcL (3.82-4.97); Red Cell Distribution Width 13.1 % (11.5-14.5); White Blood Count 11.9 K/mcL (4.3-11.1)
[2019-10-07 05:54] LABS: Creatinine,Urine 80 mg/dL; Protein/Creatinine Ratio,Urine 0.16 mg/mg (0.00-0.20)
[2019-10-07 05:55] LABS: Alanine Aminotransferase 15 Units/L (7-52); Aspartate Amino Transferase 23 Units/L (13-39); BUN/Creatinine Ratio 4 (6-26); Blood Urea Nitrogen 2 mg/dL (6-20); Lactate Dehydrogenase 168 Units/L (140-271); Uric Acid 4.9 mg/dL (2.3-7.6); eGFR For African Americans > 60 (> 60); eGFR For Non-African Americans > 60 (> 60)
[2019-10-07 06:08] LABS: Amphetamine Screen,Urine Negative ng/mL (Cutoff=1000); Barbiturate Screen,Urine Negative ng/mL (Cutoff=200)
[2019-10-07 06:09] LABS: Benzodiazepines Screen,Urine Negative ng/mL (Cutoff=300); Cannabinoid Screen,Urine Negative ng/mL (Cutoff = 50); Cocaine Screen,Urine Negative ng/mL (Cutoff= 300); Opiate Screen,Urine Negative ng/mL (Cutoff=300); Phencyclidine Screen,Urine Negative ng/mL (Cutoff=25)
[2019-10-07] MEDS ORDERED: Ringers Solution, Lactated 1,000 ML ONE ×2 (06:21→13:06)
[2019-10-07] MEDS ORDERED: Ringers Solution, Lactated 1,000 ML IVC ONE (06:40)
[2019-10-07] MEDS ORDERED: Ondansetron 4 MG/2 ML VIAL IVP PRN (06:41)
[2019-10-07] MEDS ORDERED: cefTRIAXone 1,000 MG in 0.9 % Sodium Chloride Mini Bag 100 ML IVPB ONE (07:16)
[2019-10-07] MEDS ORDERED: *HR* Promethazine 25 MG/ML VIAL IVP ONE (10:43)
[2019-10-07 14:06] LABS: Bilirubin,Urine Negative (Negative); Blood,Urine Negative (Negative); Clarity,Urine Cloudy (Clear); Color,Urine Yellow (Yellow); Glucose,Urine (UA) Normal (Normal); Ketones,Urine Negative (Negative); Leukocyte Esterase,Urine Negative (Negative); Nitrite,Urine Negative (Negative); PH,Urine 7.5 pH Units (5.0-8.0); Protein,Urine Negative (Neg-Trace); Specific Gravity,Urine 1.007 (1.010-1.025); Urobilinogen,Urine Normal (Normal)
[2019-10-07 14:17] LABS: Hyaline Casts,Urine None Seen per lpf (None-Few); RBC,Urine 0-3 per hpf (0-3); Squamous Epithelial Cell,Urine Many per lpf (None-Few); WBC,Urine 0-3 per hpf (0-3)
[2019-10-07 14:45] LABS: Bacteria,Urine Many per hpf (None-Few)
[2019-10-07 14:57] LABS: Candida DNA Not Detected (Not Detect); Gardnerella DNA Not Detected (Not Detect); Trichomonas DNA Not Detected (Not Detect)
== END 2019-10-07 17:23 | disposition home or self-care (01) ==
LOC: 1NENULAB
PROVIDERS: ADMIT Registered Nurse; ATTEND Registered Nurse